=== PATIENT | female | born 1955 | race Caucasian/White ===

== ENCOUNTER 2022-12-13 12:53 | Emergency (ER) | payer MEDICARE ==
[~2022-12-13] VITALS: Ht 160 cm; Wt 71.0 kg
[2022-12-13 12:56] VITALS: BP 122/64
[2022-12-13] MEDS ORDERED: LIDOcaine 1% 30ml preserv. free vial SQ STA (14:33)
[2022-12-13] MEDS ORDERED: CEPH-585 PO (15:43)
[2022-12-13] MEDS ORDERED: TETanus/Pertussis (Acell)/Diphther VAC/PF (Tdap-Adult) 0.5ml syringe IMVAC ONE (16:00)
[2022-12-13] MEDS ORDERED: bacitracin 15gm ointment TP STA (16:18)
== END 2022-12-13 16:26 | disposition home or self-care (01) ==
LOC: ER 12:54
DX: S81.011A Laceration without foreign body, right knee, initial encounter (principal); S51.011A Laceration without foreign body of right elbow, initial encounter; Z88.8 Allergy status to other drugs, medicaments and biological substances; V19.9XXA Pedal cyclist (driver) (passenger) injured in unspecified traffic accident, initial encounter; Y93.89 Activity, other specified; Y92.89 Other specified places as the place of occurrence of the external cause; Y99.8 Other external cause status
CPT/HCPCS: 12002; 73080; 73564; 90471; 90715; 99284; J3490; J7030; A6258; A6449